=== PATIENT | male | born 1950 | race Caucasian/White ===

== ENCOUNTER 2017-04-23 11:29 | Emergency (ER) | payer OTHER ==
[~2017-04-23] VITALS: Ht 180.3 cm; Wt 72.0 kg
[~2017-04-23 11:29] MED LIST: AMBI10TA PO; FOLI1 PO; LEVEMIR SQ; LISI-360 PO; PROT40TA PO; TRAD5TAB PO
[2017-04-23 11:36] VITALS: BP 125/62; PULSE 80; RESP 16; TEMP 98; O2SAT 99
[2017-04-23] MEDS ORDERED: INSU1INJ14 SQ (11:48)
--- NOTE | 2017-04-23 11:56 | PD ---
HPI Chief Complaint: Headache Time Seen by Provider: 11:46 Travel History International Travel<30 days: No Contact w/Intl Traveler<30days: No Traveled to known affect area: No History of Present Illness HPI ABOUT 2 WEEKS AGO HAD A TRIP AND FALL WITH BLUNT HEAD TRAUMA, NOW ONLY HAS A BLACK EYE (LEFT) REMAINING, BUT TODAY FELT LI, GENERALIZED, NO VISUAL DISTURBANCE/N/V/ PFSH Past Medical History Hx Anticoagulant Therapy: No Diabetes: Yes Patient Takes Glucophage: No Diminished Hearing: No GERD: Yes Social History Alcohol Use: Yes (DAILY COUPLE OF DRINKS AND WINE DAILY) Tobacco Use: No Substance Use: No Allergies-Medications (Allergen,Severity, Reaction): Coded Allergies: No Known Allergies (Unverified , 04/23/17) Reported Meds & Prescriptions Reported Meds & Active Scripts Active Reported Tresiba Flextouch Pen Inj (Insulin Degludec Inj) 300 unit/3 ML Pen 1 Units SQ TID Review of Systems Except as stated in HPI: all other systems reviewed are Neg Neurologic: Positive: Headache Physical Exam Narrative GENERAL: SKIN: Warm and dry. HEAD: Atraumatic. Normocephalic. EYES: Pupils equal and round. No scleral icterus. No injection or drainage. ENT: No nasal bleeding or discharge. Mucous membranes pink and moist. NECK: Trachea midline. No JVD. CARDIOVASCULAR: Regular rate and rhythm. RESPIRATORY: No accessory muscle use. Clear to auscultation. Breath sounds equal bilaterally. GASTROINTESTINAL: Abdomen soft, non-tender, nondistended. Hepatic and splenic margins not palpable. MUSCULOSKELETAL: Extremities without clubbing, cyanosis, or edema. No obvious deformities. NEUROLOGICAL: Awake and alert. No obvious cranial nerve deficits. Motor grossly within normal limits. Five out of 5 muscle strength in the arms and legs. Normal speech. PSYCHIATRIC: Appropriate mood and affect; insight and judgment normal. Data Data Last Documented VS Vital Signs Date Time Temp Pulse Resp B/P Pulse Ox O2 Delivery O2 Flow Rate FiO2 04/23/17 12:41 95 20 129/68 95 04/23/17 11:[address] Brain W/O Iv Contrast(Rout) (04/23/17 11:50) Ondansetron Odt (Zofran Odt) (04/23/17 12:00) Hydromorphone Pf Inj (Dilaudid Pf Inj) (04/23/17 12:00) MDM Medical Decision Making Medical Screen Exam Complete: Yes Emergency Medical Condition: Yes Medical Record Reviewed: Yes Differential Diagnosis TENSION LI V ICH Narrative Course PATIENT FEELS BETTER AFTER PAIN MEDICATION, CT HEAD IS NEG FOR ICH OR SKULL FX, HE WILL BE D/C HOME Diagnosis Primary Impression: Tension headache Patient Instructions: General Instructions, Tension Headache (ED) Med/Other Pt SpecificInfo: Prescription(s) given Scripts Codeine-Acetaminophen 30-300 mg Tab1 Tab PO Q4H PRN (PAIN) #20 TAB Ref 0 Prov:Virgil Gan MD 04/23/17 Cyclobenzaprine (Flexeril)10 Mg Tab10 Mg PO TID #21 TAB Ref 0 Prov:Virgil Gan MD 04/23/17 Disposition: 01 DISCHARGE HOME Condition: Stable Virgil Gan MD Apr 23, 2017 11:56
[2017-04-23 12:00] VITALS: BP 126/73; PULSE 77; RESP 20; O2SAT 96
[2017-04-23] MEDS ORDERED: HYDROmorphone HCL PF 1 MG/ML VIAL IM ONE (12:00)
[2017-04-23] MEDS ORDERED: ONDANSETRON ODT 4 MG TAB PO ONE (12:00)
[2017-04-23 12:41] VITALS: BP 129/68; PULSE 95; RESP 20; O2SAT 95
--- NOTE | 2017-04-23 12:57 | RADHPO ---
EXAM DATE/TIME: 04/23/2017 12:02 [facility] COMPARISON: CT BRAIN W/O CONTRAST, September 22, 2015, 16:32. INDICATIONS : fell 2 weeks ago, has a left black eye, states woke with a headaches this morning. RADIATION DOSE: 64.93 CTDIvol (mGy) MEDICAL HISTORY : None SURGICAL HISTORY : None. ENCOUNTER: Initial ACUITY: 2 weeks PAIN SCALE: 6/10 LOCATION: Bilateral cranial TECHNIQUE: Multiple contiguous axial images were obtained of the head. Using automated exposure control and adj ustment of the mA and/or kV according to patient size, radiation dose was kept as low as reasonably a chievable to obtain optimal diagnostic quality images. FINDINGS: CEREBRUM: There is mild cerebral atrophy. Ventricles are normal in size. There is severe calcification of the i ntracranial internal carotid arteries. No evidence of midline shift, mass lesion, hemorrhage or acut e infarction. No extra-axial fluid collections are seen. POSTERIOR FOSSA: The cerebellum and brainstem demonstrate no acute finding. The 4th ventricle is midline. The cerebe llopontine angle is unremarkable. EXTRACRANIAL: Sinuses demonstrate no acute finding. SKULL: The calvaria is intact. No evidence of skull fracture. CONCLUSION: No acute intracranial abnormality is identified. Gaurang Monk MD on April 23, 2017 at 12:52 Board Certified Radiologist. This report was verified electronically.
[2017-04-23 13:27] VITALS: BP 129/71; PULSE 72; RESP 18; O2SAT 99
[2017-04-23] MEDS ORDERED: CODE30TA2 PO (13:31)
[2017-04-23] MEDS ORDERED: CYCL1TAB29 PO (13:31)
== END 2017-04-23 13:47 | disposition home or self-care (01) ==
LOC: PHED 11:29
DX: G44.209 Tension-type headache, unspecified, not intractable (principal); E11.9 Type 2 diabetes mellitus without complications; Z79.4 Long term (current) use of insulin
CPT/HCPCS: 70450; 96372; 99285; J1170

== ENCOUNTER 2017-09-08 13:55 | Emergency (ER) | payer OTHER, MEDICARE ==
[~2017-09-08] VITALS: Ht 152.4 cm; Wt 68.5 kg
[~2017-09-08 13:55] MED LIST changes: -AMBI10TA PO; +CODE30TA2 PO; +CYCL10TA PO; -FOLI1 PO; +INSU1INJ14 SQ; -LEVEMIR SQ; -LISI-360 PO; -PROT40TA PO; -TRAD5TAB PO
[2017-09-08 14:20] VITALS: BP 146/74; PULSE 86; RESP 18; TEMP 99; O2SAT 98
[2017-09-08] MEDS ORDERED: INSU1INJ14 SQ (14:38)
[2017-09-08] MEDS ORDERED: SODIUM CHLOR 0.9% 1000 ML INJ 1,000 ML IV ONE (14:38)
[2017-09-08] MEDS ORDERED: TRAD5TAB PO (14:38)
[2017-09-08] MEDS ORDERED: METOCLOPRAMIDE HCL 10 MG/2 ML VIAL IVP ONE (14:45)
[2017-09-08] MEDS ORDERED: KETOROLAC TROMETHAMINE 30 MG/ML (IVP) VIAL IVP ONE (14:45)
[2017-09-08] MEDS ORDERED: diphenhydrAMINE HCL 50 MG/ML VIAL IVP ONE (14:45)
[2017-09-08 14:54] VITALS: BP 146/74; PULSE 86; RESP 16; TEMP 99; O2SAT 98
--- NOTE | 2017-09-08 14:58 | PD ---
HPI Chief Complaint: Skin Problem Time Seen by Provider: 14:30 Travel History International Travel<30 days: Yes Contact w/Intl Traveler<30days: Yes Name of Country Traveled to: [place] Traveled to known affect area: No History of Present Illness HPI 66-year-old male here for evaluation of 2 separate complaints. Reports that yesterday evening he developed a headache. He describes it as a bitemporal pressure headache which is constant and gradually getting worse. There was no thunderclap onset. He took some aspirin this morning but the headache persisted. In addition the patient is complaining of pain to the lower sternal region. He first noticed it this morning. He reports that he can feel a "lump " on his lower chest wall and the pain is localized. The pain is a sharp pain that is worse with palpation. He denies any other chest pain, shortness of breath, cough or congestion, fevers or chills, blurred vision, slurred speech, focal weakness, chest wall trauma. He has no other complaints at this time. PFSH Past Medical History Hx Anticoagulant Therapy: No Diabetes: Yes Patient Takes Glucophage: No Diminished Hearing: No GERD: Yes Tetanus Vaccination: Unknown Past Surgical History Tonsillectomy: Yes Social History Alcohol Use: Yes (DAILY COUPLE OF DRINKS AND WINE DAILY) Tobacco Use: No Substance Use: No Allergies-Medications (Allergen,Severity, Reaction): Coded Allergies: No Known Allergies (Unverified Adverse Reaction, Unknown, 09/08/17) Reported Meds & Prescriptions Reported Meds & Active Scripts Active Reported Tresiba Flextouch Pen Inj (Insulin Degludec Inj) 300 unit/3 ML Pen 1 Units SQ HS Tradjenta (Linagliptin) 5 Mg Tab 5 Mg PO DAILY Review of Systems Except as stated in HPI: all other systems reviewed are Neg Physical Exam Narrative GENERAL: Well-developed well-nourished male in no acute distress, conversing normally SKIN: Warm and dry. No rash. HEAD: Atraumatic. Normocephalic. EYES: Pupils equal and round. No scleral icterus. No injection or drainage. ENT: No nasal bleeding or discharge. Mucous membranes pink and moist. NECK: Trachea midline. No JVD. CARDIOVASCULAR: Regular rate and rhythm. No murmur appreciated. RESPIRATORY: No accessory muscle use. Clear to auscultation. Breath sounds equal bilaterally. GASTROINTESTINAL: Abdomen soft, non-tender, nondistended. Hepatic and splenic margins not palpable. MUSCULOSKELETAL: No obvious deformities. The patient has tenderness focally located to the xiphoid. NEUROLOGICAL: Awake and alert. No obvious cranial nerve deficits. Motor grossly within normal limits. Normal speech. PSYCHIATRIC: Appropriate mood and affect; insight and judgment normal. Data Data Last Documented VS Vital Signs Date Time Temp Pulse Resp B/P (MAP) Pulse Ox O2 Delivery O2 Flow Rate FiO2 09/08/17 14:54 99.0 86 16 146/74 (98) 98 09/08/17 14:20 Room Air Orders Orders Chest, Single Ap (09/08/17 ) Ketorolac Inj (Toradol Inj) (09/08/17 14:45) Diphenhydramine Inj (Benadryl Inj) (09/08/17 14:45) Metoclopramide Inj (Reglan Inj) (09/08/17 14:45) Sodium Chlor 0.9% 1000 Ml Inj (Ns 1000 M (09/08/17 14:38) Ed Discharge Order (09/08/17 15:34) MDM Medical Decision Making Medical Screen Exam Complete: Yes Emergency Medical Condition: Yes Medical Record Reviewed: Yes Differential Diagnosis Tension headache, migraine without, subarachnoid hemorrhage, temporal arteritis , intracranial mass Xiphoidalgia, costochondritis, pleurisy, pancreatitis, acute coronary syndrome, pulmonary embolism, intrathoracic mass Narrative Course Physical examination is reassuring. His headache appears to be mild and without any neurologic abnormality associated with it and I suspect that this is a benign headache. Reassuringly the patient was seen here in April 2017 and he had a normal CT the brain without any structural abnormality. The patient's chest wall pain is localized to the xiphoid and is reproducible with palpation and I suspect that this is musculoskeletal pain. An x-ray will be obtained to further assess but at this time the plan is to treat the patient symptomatically with Toradol, Reglan and Benadryl. X-ray imaging reveals no acute abnormalities. He feels improved after the administration of medication. He is stable for discharge. Diagnosis Primary Impression: Headache Qualified Codes: R51 - Headache Additional Impression: Xiphoidalgia Additional Instructions: Take ibuprofen or naproxen for pain per dosing instructions on the bottle. Follow-up with primary care physician. Return for any emergent medical conditions. Med/Other Pt SpecificInfo: No Change to Meds Disposition: 01 DISCHARGE HOME Condition: Stable Ethan Flores Sep 08, 2017 14:58
--- NOTE | 2017-09-08 15:18 | RADRPT ---
EXAM DATE/TIME: 09/08/2017 15:09 [facility] COMPARISON: CHEST SINGLE AP, January 26, 2014, 23:21. INDICATIONS : Patient states there is a bump in center of chest. MEDICAL HISTORY : Diabetes mellitus type II. SURGICAL HISTORY : None. ENCOUNTER: Initial ACUITY: 1 day PAIN SCORE: 0/10 LOCATION: Bilateral chest FINDINGS: A single view of the chest demonstrates the lungs to be symmetrically aerated without evidence of mas s, infiltrate or effusion. The cardiomediastinal contours are unremarkable. Osseous structures are intact. CONCLUSION: No acute disease. No significant change has occurred. Kwaku Anderson MD on September 08, 2017 at 15:16 Board Certified Radiologist. This report was verified electronically.
[2017-09-08 16:06] VITALS: BP 140/72
== END 2017-09-08 16:12 | disposition home or self-care (01) ==
LOC: PHED 13:55
DX: R51 Headache (principal); E11.9 Type 2 diabetes mellitus without complications; Z79.4 Long term (current) use of insulin
CPT/HCPCS: 71010; 96361; 96374; 96375; 99284; J1200; J1885; J2765; J7030

== ENCOUNTER 2017-10-02 09:12 | Emergency (ER) | payer OTHER, MEDICARE ==
[~2017-10-02] VITALS: Ht 177.8 cm; Wt 70.0 kg
[~2017-10-02 09:12] MED LIST changes: -CODE30TA2 PO; -CYCL10TA PO; +TRAD5TAB PO
[2017-10-02 09:20] VITALS: BP 173/79; PULSE 81; RESP 18; TEMP 98.2
--- NOTE | 2017-10-02 09:39 | PD ---
HPI Chief Complaint: Musculoskeletal Complaint Time Seen by Provider: 09:29 Travel History International Travel<30 days: No Contact w/Intl Traveler<30days: No Traveled to known affect area: No History of Present Illness HPI 67-year-old male presents to the emergency room for evaluation of left shoulder pain and injury after hurting last night. Patient slipped on the tile floor and slammed his left arm into the door frame. He denies any other injuries. He did not fall, hit his head. He is not on blood thinners. States he has had persistent pain localized to the left proximal humerus since then. Pain is worsened with any range of motion. States even just moving his wrist causes his shoulder to her. He has not taken anything for symptoms. Has not applied ice. He has never injured the shoulder before. PFSH Past Medical History Hx Anticoagulant Therapy: No Diabetes: Yes Patient Takes Glucophage: No Diminished Hearing: No GERD: Yes Past Surgical History Surgical History: No Previous Surgery Tonsillectomy: Yes Social History Alcohol Use: Yes (DAILY COUPLE OF DRINKS AND WINE DAILY) Tobacco Use: No Substance Use: No Allergies-Medications (Allergen,Severity, Reaction): Coded Allergies: No Known Allergies (Unverified Adverse Reaction, Unknown, 09/08/17) Reported Meds & Prescriptions Reported Meds & Active Scripts Active Percocet (Oxycodone-Acetaminophen) 5-325 mg Tab 1 Tab PO Q6H PRN Reported Tresiba Flextouch Pen Inj (Insulin Degludec Inj) 300 unit/3 ML Pen 1 Units SQ HS Tradjenta (Linagliptin) 5 Mg Tab 5 Mg PO DAILY Review of Systems Except as stated in HPI: all other systems reviewed are Neg Physical Exam Narrative GENERAL: Well-nourished, well-developed male in no acute distress. Afebrile. Ambulatory. SKIN: Focused skin assessment warm/dry. Large area of ecchymosis in the left shoulder, stretching down the left upper arm. HEAD: Normocephalic. EYES: No scleral icterus. No injection or drainage. NECK: Supple, trachea midline. No JVD or lymphadenopathy. CARDIOVASCULAR: Regular rate and rhythm without murmurs, gallops, or rubs. RESPIRATORY: Breath sounds equal bilaterally. No accessory muscle use. MUSCULOSKELETAL: No cyanosis. Moderate to severe edema of the left upper extremity. Extreme limited range of motion secondary to pain. 2+ radial pulse. Radial, ulnar, and median nerves intact. Extreme tenderness to palpation of the left humeral head. No tenderness to palpation of the distal humerus. Data Data Last Documented VS Vital Signs Date Time Temp Pulse Resp B/P (MAP) Pulse Ox O2 Delivery O2 Flow Rate FiO2 10/02/17 09:20 98.2 81 18 173/79 (110) Orders Orders Shoulder, Limited(2vws) (10/02/17 ) [facility] Medical Decision Making Medical Screen Exam Complete: Yes Emergency Medical Condition: Yes Medical Record Reviewed: Yes Differential Diagnosis Fracture, sprain, strain, contusion Narrative Course 67-year-old male presents to the emergency room for evaluation of left shoulder pain after trip and fall last night. Patient tripped and fell forward into the door frame. Denies any other injuries. He has had persistent left shoulder pain with any range of motion since. Left upper extremity is neurovascularly intact with 2+ radial pulse. Radial, ulnar, and median nerves intact. Range of motion of the shoulder secondary to pain. Extreme edema and moderate ecchymosis. X-ray shows surgical neck fracture of the left humerus with mild displacement. I spoke to the orthopedic surgeon operations supervisor 2nd shift, Dr. Sheridan, who states patient is stable for outpatient follow-up with sling and swath. Sling and swath placed in the ER and patient discharged with prescription for Percocet. Told to follow-up within 1 week or return for worsening symptoms. He understands and agrees to plan. Diagnosis Primary Impression: Closed left humeral fracture Qualified Codes: S42.212A - Unspecified displaced fracture of surgical neck of left humerus, initial encounter for closed fracture Referrals: Carly Sheridan MD Additional Instructions: Rest and drink plenty of fluids. Sling and swath until follow-up. Take Percocet with food as directed, as needed for pain. Do not drink alcohol or drive while taking this medication. Apply ice to the affected area for 20 minutes at a time, as needed for pain and swelling. Follow-up with an orthopedic surgeon. Return to the emergency room for worsening symptoms. Scripts Oxycodone-Acetaminophen (Percocet) 5-325 mg Tab 1 TAB PO Q6H Y for PAIN, #15 TAB 0 Refills Prov: Ricco Haas MD 10/02/17 Disposition: 01 DISCHARGE HOME Condition: Stable Melinda Steen 26, 2017 09:39
--- NOTE | 2017-10-02 10:44 | RADRPT ---
EXAM DATE/TIME: 10/02/2017 10:04 [facility] COMPARISON: No previous studies available for comparison. INDICATIONS : Fall. Left shoulder pain. Limited motion. MEDICAL HISTORY : None. SURGICAL HISTORY : None. ENCOUNTER: Initial ACUITY: 1 day PAIN SCORE: 9/10 LOCATION: Left scapular FINDINGS: There is an oblique fracture through the surgical neck of the proximal humerus with 9 mm separation l aterally. On the chest Y. views of the humeral head maintains alignment with the glenoid. The visua lized left upper ribs are intact the a.c. joint is intact. CONCLUSION: Fracture through the surgical neck with mild lateral separation. Julio Mccall MD on October 02, 2017 at 10:41 Board Certified Radiologist. This report was verified electronically.
[2017-10-02] MEDS ORDERED: PERC5TAB12 PO (11:11)
[2017-10-02] MEDS ORDERED: HYDROmorphone HCL PF 0.5 MG/0.5 ML SYRINGE SQ ONE (11:30)
== END 2017-10-02 11:44 | disposition home or self-care (01) ==
LOC: PHEFT 09:12
DX: S42.212A Unspecified displaced fracture of surgical neck of left humerus, initial encounter for closed fracture (principal); W01.198A Fall on same level from slipping, tripping and stumbling with subsequent striking against other object, initial encounter
CPT/HCPCS: 29240; 73030; 96372; 99284; J1170